=== PATIENT | male | born 1965 | race Caucasian/White ===

== ENCOUNTER 2016-06-08 10:08 | Day surgery (SDC) | payer BC ==
--- NOTE | 2016-06-07 15:22 | PCM.OPNOTE ---
- General Post-Op/Procedure Note Date of Surgery/Procedure: 06/08/16 Condition: Good Free Text/Narrative:: Pre operative diagnosis: Deviated nasal septum, hypertrophy of bilateral inferior turbinates, rhinitis, nasal obstruction Post operative diagnosis : Same Procedure: Coblation reduction of bilateral inferior turbinates [ CPT 15839 (50) ], Nasal Septoplasty [41267] Surgeon: Whitney Hannon MD Anesthesia: GA Anesthesiologist: Dr Mcnally Date of procedure: 06/08/2016 Indications: Deviated nasal septum, hypertrophy of bilateral inferior turbinates , rhinitis, nasal obstruction Findings: Bilateral inferior turbinate hypertrophy, rhinitis and crusting ++; L anterior DNS with dislocation of cartilage off maxillary crest; R High DNS Operation Details: An informed consent was obtained. A time out was performed and the patient was brought back to the operating room. Gen. anesthesia was administered with an endotracheal tube. The patient was then prepped and draped in a standard fashion. The turbinates were addressed first. A 0 degree rigid nasal endoscope was used to examine bilateral nasal cavities and photo documentation was obtained. BIlateral inferior turbinates were infiltrated with 1% lidocaine - 2 mls was used on each side. Bilateral nasal cavities were then packed with oxymetazoline 0.05% soaked cottonoid pledgets. After an appropriate period of decongestion the pledgets were removed. The left inferior turbinate was addressed first. A reflex 45 coblation wand with tip dipped in AYR Gel was used at setting of 6:2 for Coblation and coagulation respectively. The point of entry was coagulated and wand was inserted till the third marking. Three crawford lasting 10 seconds each were created in the single channel. The inferior turbinate was visibly shrunk. Similar procedure was repeated on the right side with visible reduction in size of turbinates. Nasal septum was infiltrated with 2% lidocaine 1: 100, 000 epinephrine in a standard fashion-a total of 3 mils was used. Bilateral nasal cavities were then again packed with oxymetazoline 0.05% soaked cottonoid pledgets. The pledgets were then removed. A left sided Fidelis incision was performed at the mucocutaneous junction. A left sided mucoperichondrial flap was elevated-dissection was commenced with 2 mm osteotome and further carried out with combination of carlos and [place] elevators. Posteriorly the flap was continued as a muco periosteal flap. Sharp and careful dissection was performed to lift the flaps off the left sided spur along the floor. A posterior chondrotomy was performed. Right-sided mucoperiosteal flap was elevated. Floor of the septal cartilage was dissected off the maxillary crest elevating thin strip of mucoperichondrial flap inferiorly on the contralateral-right side. A gomez scissor was used and the perpendicular plate of the ethmoid was removed. The vomer was also removed. The thin inferior strip of cartilage was removed using a septal knife. Also approximately 2 mm thin posterior vertical strip of cartilage was removed. Subsequent to this the nasal septum was positioned towards the midline. Flap incision was sutured with 4-0 plain gut on a Tahir needle. Mattress sutures were also performed. Bilateral Curtis splints were inserted and held in place with 2.0 Prolene suture. Drip pad was applied. This concluded the procedure and the patient was turned over to the anesthesiologist for recovery. Specimens: None IV fluids: 1900 ml Blood loss: 5 ml Blood products: nil Disposition: PACU for recovery Follow up: In 1 week for removal of splints
[~2016-06-08 10:08] MED LIST: Aloe Vera/Sodium Chloride Gel 14.1 GM Tube ONE; Lactated Ringers 1,000 ML IV SCH; Lidocaine 2% with EPINEPHrine 1:100,000 20 ML MDV ONE; Oxymetazoline 0.05% Nasal Spray 15 ML Bottle ONE
--- NOTE | 2016-06-08 11:48 | PCM.PREANE ---
Preanesthetic Assessment - Anesthesia/Transfusion/Family Hx Anesthesia History: Prior Anesthesia Without Reaction Transfusion History: No Prior Transfusion(s) - Physical Assessment NPO Status Date: 06/07/16 NPO Status Time: 19:30 O2 Sat by Pulse Oximetry: 95 Respiratory Rate: 16 Vital Signs: Last Vital Signs Temp 36.7 C 06/08/16 10:58 Pulse 55 L 06/08/16 10:58 Resp 16 06/08/16 10:58 BP 130/85 06/08/16 10:58 Pulse Ox 95 06/08/16 10:58 Height: 1.83 m Weight: 112.945 kg - Allergies Allergies/Adverse Reactions: Allergies Allergy/AdvReac Type Severity Reaction Status Date / Time No Known Allergies Allergy Verified 05/27/16 10:36 PreAnesthesia Questionnaire HEENT History: Reports: Allergic rhinitis, Other (see below) (deviated septum) Cardiovascular History: Reports: High cholesterol, Hypertension Musculoskeletal History: Reports: Arthritis Endocrine/Metabolic History: Reports: Obesity/BMI 30+ - Past Surgical History Head Surgeries/Procedures: Reports: None Musculoskeletal Surgical History: Reports: Arthroscopic knee (left knee) - SUBSTANCE USE Smoking Status *Q: Never Smoker Days Per Week of Alcohol Use: 7 Number of Drinks Per Day: 1 Total Drinks Per Week: 7 Recreational Drug Use History: No - HOME MEDS Home Medications: Home Meds Aspirin [Bracken Aspirin] 81 mg PO DAILY 05/27/16 [History] Loratadine 10 mg PO DAILY 05/27/16 [History] Metoprolol Tartrate 50 mg PO BID 05/27/16 [History] Mometasone Furoate [Nasonex] 1 spray NASBOTH DAILY 05/27/16 [History] atorvaSTATin Calcium [Atorvastatin Calcium] 20 mg PO DAILY 05/27/16 [History] - CURRENT (IN HOUSE) MEDS Current Meds: Current Medications Lactated Ringer's (Ringers, Lactated) 1,000 mls @ 125 mls/hr IV ASDIRECTED MICHELLE Last Admin: 06/08/16 11:00 Dose: 125 mls/hr Discontinued Medications Lidocaine/Epinephrine (Xylocaine 2% With Epinephrine 1:100,000) Confirm Administered Dose 20 ml .ROUTE .STK-MED ONE Stop: 06/08/16 07:46 Oxymetazoline HCl (Afrin Original 0.05% Nasal Errol) Confirm Administered Dose 15 ml .ROUTE .STK-MED ONE Stop: 06/08/16 07:46 Sodium Chloride ([place] Saline Nasal Gel) Confirm Administered Dose 14.1 gm .ROUTE .STK-MED ONE Stop: 06/08/16 07:45 Preanesthetic Assessment - ANESTHESIA/TRANSFUSION/FAMILY HX Anesthesia/Transfusion History: Prior Anesthesia Type of Anesthesia Reaction: Denies: Allergy, Anesthesia Awareness, Excessive Somnolence, Excessive Nausea/Vomiting, Excessive Itching, Excessive Shivering, Malignant Hyperthermia, Malignant Hyperthermia, Family History, Pseudocholinesterase Deficiency, Pseudocholinesterase Deficiency, Family History of, Urinary Retention, Unknown, Other (see below) Family History of Anesthesia Reaction: No Other Intubation History Comment: no known problems - REVIEW OF SYSTEMS Constitutional: Reports: no symptoms MIDDLEWARE CONSULTANT: Reports: no symptoms Respiratory: Reports: no symptoms Cardiovascular: Reports: no symptoms GI: Reports: no symptoms Other: Reports: None - PHYSICAL ASSESSMENT O2 Sat by Pulse Oximetry: 95 RR: 16 Vital Signs: Last Vital Signs Temp 36.7 C 06/08/16 10:58 Pulse 55 L 06/08/16 10:58 Resp 16 06/08/16 10:58 BP 130/85 06/08/16 10:58 Pulse Ox 95 06/08/16 10:58 Height: 1.83 m Weight: 112.945 kg NPO Status Date: 06/07/16 NPO Status Time: 19:30 ASA Class: 2 Mental Status: Alert & Oriented x3 Airway Class: Mallampati = 2 Dentition: Reports: Normal Dentition Thyro-Mental Finger Breadths: 3 Mouth Opening Finger Breadths: 2 ROM/Head Extension: Full Respiratory Status: lungs clear to auscultation bilaterally Cardiovascular Status: regular rate & rhythm, normal S1, S2, no murmur, blood pressure WNL - ALLERGIES Allergies/Adverse Reactions: Allergies Allergy/AdvReac Type Severity Reaction Status Date / Time No Known Allergies Allergy Verified 05/27/16 10:36 - BLOOD Blood Available: No - ANESTHESIA PLAN Preop Beta Merle: No Anesthesia Type Planned: General Anesthesia - ACKNOWLEDGEMENTS Pt an Appropriate Candidate for the Planned Anesthesia: Yes Alternatives and Risks of Anesthesia Discussed w Pt/Guardian: Yes Pt/Guardian Understands and Agrees with Anesthesia Plan: Yes
[2016-06-08] MEDS ORDERED: fentaNYL 250 MCG/5 ML SDV ONE (13:21)
[2016-06-08] MEDS ORDERED: Lidocaine 2% 5 ML SDV ONE (13:21)
[2016-06-08] MEDS ORDERED: Midazolam 1 MG/ML 2 ML SDV ONE (13:21)
[2016-06-08] MEDS ORDERED: Propofol 200 MG/20 ML SDV ONE ×2 (13:21→14:22)
[2016-06-08] MEDS ORDERED: Rocuronium 10 MG/ML 10 ML Syringe ONE (13:22)
[2016-06-08] MEDS ORDERED: Ondansetron 4 MG/2 ML SDV ONE (13:22)
[2016-06-08] MEDS ORDERED: Neostigmine Methylsulfate 1 MG/ML 5 ML Syringe IV ONE (13:24)
--- NOTE | 2016-06-08 13:33 | PCM.HPR ---
H & P Addendum review - H & P Addendum Review Date of Original H & P: 05/12/16 Date Reviewed: 06/08/16 Time Reviewed: 13:00 Patient was examined: Changes (COnsent for reduction of bilateral inferior turbinates was added. He has active rhinitis today - informed that if on endoscopy he has purulence - will not perform procedure today,. He agrees and understands)
[2016-06-08] MEDS ORDERED: ePHEDrine 50 MG/ML SDV ONE (13:51)
[2016-06-08] MEDS ORDERED: Lidocaine 1% 20 ML MDV ONE (13:55)
[2016-06-08] MEDS ORDERED: fentaNYL 100 MCG/2 ML SDV IVPUSH PRN (15:31)
[2016-06-08] MEDS ORDERED: Ibuprofen 400 MG Tab PO PRN (15:49)
[2016-06-08] MEDS ORDERED: Acetaminophen 325 MG Tab PO PRN (15:49)
[2016-06-08] MEDS ORDERED: traMADol 50 MG Tab PO PRN (15:51)
--- NOTE | 2016-06-08 16:00 | PCM.POSTAN ---
POST ANESTHESIA ASSESSMENT - MENTAL STATUS Mental Status: alert, oriented - RESPIRATORY Respiratory Status: respiratory rate WNL, airway patent, O2 saturation stable - CARDIOVASCULAR CV Status: pulse rate WNL, blood pressure stable - GASTROINTESTINAL GI Status: no symptoms - POST OP HYDRATION Hydration Status: adequate & stable
--- NOTE | 2016-06-08 16:26 | PCM48HPAN ---
Post Anesthesia Note - EVALUATION WITHIN 48HRS OF ANESTHETIC Vital Signs in Normal Range: Yes Patient Participated in Evaluation: Yes Respiratory Function Stable: Yes Airway Patent: Yes Cardiovascular Function Stable: Yes Hydration Status Stable: Yes Pain Control Satisfactory: Yes Nausea and Vomiting Control Satisfactory: Yes Mental Status Recovered: Yes
[2016-06-08 17:16] VITALS: BP 120/75
== END 2016-06-08 17:00 | disposition home or self-care (01) ==
LOC: MW.SDS 10:08
PROVIDERS: ATTEND Otolaryngology
DX: J34.2 Deviated nasal septum (principal); J34.3 Hypertrophy of nasal turbinates; Z79.82 Long term (current) use of aspirin; Z79.899 Other long term (current) drug therapy
CPT/HCPCS: 30520; 30802; A9270; J2250; J2405; J3010; J7120; 00160; J2704